=== PATIENT | female | born 1965 | race Caucasian/White ===

== ENCOUNTER 2018-02-15 09:35 | Emergency (ER) | payer OTHER ==
[2018-02-15 09:40] VITALS: BP 125/84; PULSE 92; TEMP 99.5; BMI 21.8
[2018-02-15] MEDS ORDERED: IBUPROFEN 600 MG TABLET (FP) PO ONE ×2 (10:07→10:15)
--- NOTE | 2018-02-15 10:25 | PDOC ---
History of Present Illness - General Chief Complaint: Injury Stated Complaint: LEFT WRIST WORK INJURY Time Seen by Provider: 02/15/18 09:37 History Source: Patient Exam Limitations: No Limitations - History of Present Illness Initial Comments: 02/15/18 10:21 52-year-old female history of asthma here today status post fall at work. 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 Happened just prior to arrival denies any elbow or shoulder injury. No head trauma no neck or back pain pain in the left wrist is worse with movement does have associated swelling no ecchymosis skin is intact no lacerations. Did not take anything for pain Past History - Past Medical History Allergies/Adverse Reactions: Allergies Allergy/AdvReac Type Severity Reaction Status Date / Time gabapentin [From Neurontin] Allergy Intermediate Verified 02/15/18 09:36 levofloxacin [From Levaquin] Allergy Intermediate Rash Verified 02/15/18 09:36 shellfish derived Allergy Verified 02/15/18 09:36 SEAFOOD Allergy Uncoded 02/15/18 09:36 Home Medications: Ambulatory Orders Loratadine 10 mg PO DAILY 02/15/18 COPD: No Other medical history: ENVIRONMENTAL ALLERGIES - Immunization History Td Vaccination: Yes - Suicide/Smoking/Psychosocial Hx Smoking Status: No Smoking History: Never smoked Have you smoked in the past 12 months: No Number of Cigarettes Smoked Daily: 0 Information on smoking cessation initiated: No Hx Alcohol Use: (occasional) Review of Systems - Review of Systems Constitutional: No: Diaphoresis, Fever Respiratory: No: Cough, Orthopnea, Shortness of Breath Cardiac (ROS): No: Chest Pain Musculoskeletal: Yes: Joint Pain Integumentary: No: Bruising All Other Systems: Reviewed and Negative *Physical Exam - Vital Signs Last Vital Signs Temp Pulse Resp BP Pulse Ox 99.5 F 92 H 18 125/84 96 02/15/18 09:35 02/15/18 09:35 02/15/18 09:35 02/15/18 09:35 02/15/18 09:35 - Physical Exam General Appearance: Yes: Nourished HEENT: positive: Normal ENT Inspection Neck: positive: Trachea midline. negative: Tender Respiratory/Chest: positive: Lungs Clear, Normal Breath Sounds Cardiovascular: positive: Regular Rhythm, Regular Rate, S1, S2 Extremity: positive: Normal Capillary Refill, Tender (dorsum of left wrist tender to palpation a quarter size cystic area of swelling similar to her dorsal ganglion cyst tender on palpation decreased dorsiflexion and volar flexion due to pain no snuffbox tenderness elbow is full range of motion shoulder full range of motion) Integumentary: positive: Normal Color, Dry, Warm, Swelling (dorsal swelling quarter size lesion similar to dorsal ganglion cyst with tenderness no erythema skin is intact). negative: Ecchymosis Neurologic: positive: Fully Oriented, Alert, Normal Mood/Affect, Other ( sensation intact to the distal fingers 2+ median and ulnar pulses) ED Treatment Course - RADIOLOGY Radiology Studies Ordered: Category Date Time Status HAND- LEFT [RAD] Stat Radiology 02/15/18 10:07 Ordered WRIST-LEFT [RAD] Stat Radiology 02/15/18 10:06 Ordered - Medications Given in the ED: ED Medications Discontinued Medications Generic Name Dose Route Start Last Admin Trade Name Freq PRN Reason Stop Dose Admin Ibuprofen 600 mg 02/15/18 10:07 02/15/18 10:16 Motrin - PO 02/15/18 10:08 600 mg ONCE ONE Administration Medical Decision Making - Medical Decision Making 02/15/18 10:24 Left wrist injury at work. Differential includes distal radius fracture versus carpal bone fracture. Plan x-ray the hand and wrist elbow and shoulder are nontender pain control with Motrin likely splint for comfort and DC with orthopedic follow-up pending x-ray results *DC/Admit/Observation/Transfer Diagnosis at time of Disposition: Wrist fracture - Discharge Dispostion Disposition: HOME Condition at time of disposition: Improved - Referrals Referrals: Eddi Hoang MD [Staff Physician] - - Patient Instructions Printed Discharge Instructions: Wrist Fracture Additional Instructions: Wear splint until follow-up with Dr. Hoang. He should follow-up with Dr. Hoang - Post Discharge Activity
== END 2018-02-15 11:59 | disposition home or self-care (01) ==
LOC: FER 09:35
PROC: 2W3DX1Z Immobilization of Left Lower Arm using Splint (ICD-10-PCS; principal; 2018-02-15)
DX: S52.502A Unspecified fracture of the lower end of left radius, initial encounter for closed fracture (principal); W18.39XA Other fall on same level, initial encounter; Y93.89 Activity, other specified; Y92.159 Unspecified place in reform school as the place of occurrence of the external cause; Y99.0 Civilian activity done for income or pay; J30.2 Other seasonal allergic rhinitis
CPT/HCPCS: 73110-TC-LR-FY; 73130-TC-LR-FY; 99283-25

== ENCOUNTER 2021-05-01 11:48 | Emergency (ER) | payer OTHER ==
[2021-05-01 12:05] VITALS: TEMP 98.7; BMI 21.2
[2021-05-01] MEDS ORDERED: ALBUTEROL SO4 0.083% IH SOL 2.5 MG/3 ML VIAL.NEB. NEB ONE ×2 (12:14→12:19)
[2021-05-01] MEDS ORDERED: predniSONE 20 MG TABLET (UD) PO ONE (12:14)
[2021-05-01] MEDS ORDERED: predniSONE 10 MG TABLET (UD) ONE (12:19)
[2021-05-01] MEDS ORDERED: predniSONE 20 MG TABLET (UD) ONE (12:19)
[2021-05-01] MEDS ORDERED: FAMOTIDINE 20 MG TABLET PO ONE (13:04)
[2021-05-01] MEDS ORDERED: ONDANSETRON *ODT* 4 MG TABLET SL ONE (13:04)
[2021-05-01] MEDS ORDERED: ONDANSETRON *ODT* 4 MG TABLET ONE (13:19)
[2021-05-01] MEDS ORDERED: FAMOTIDINE 20 MG TABLET ONE (13:19)
[2021-05-01 14:55] VITALS: BP 122/70; PULSE 82
== END 2021-05-01 14:55 | disposition home or self-care (01) ==
LOC: JER 11:48
DX: R05.1 Acute cough (principal); R09.89 Other specified symptoms and signs involving the circulatory and respiratory systems; T50.B95A Adverse effect of other viral vaccines, initial encounter
CPT/HCPCS: 99283-25; Q0162